=== PATIENT | female | born 1965 | race Two or more races ===

== ENCOUNTER 2019-10-06 14:53 | Emergency (ER) | payer OTHER ==
[2019-10-06 15:10] VITALS: BP 122/71; PULSE 70
[2019-10-06] MEDS ORDERED: Sodium Chloride 0.9% 10 ML Syringe FLUSH PRN (15:22)
[2019-10-06] MEDS ORDERED: Ketorolac 30 MG/ML SDV IVPUSH ONE (15:24)
--- NOTE | 2019-10-06 15:29 | EDM.PDOC ---
ED HPI GENERAL MEDICAL PROBLEM - General Chief Complaint: Chest Pain Stated Complaint: CHEST PAIN Time Seen by Provider: 10/06/19 14:57 Source of Information: Reports: Patient History Limitations: Reports: No Limitations - History of Present Illness INITIAL COMMENTS - FREE TEXT/NARRATIVE: Patient is a 53-year-old female who presents with complaints of chest pain and shortness of breath that started on Thursday. The symptoms began as chest "heaviness" and "pressure" with SOB on Thursday. She states that the symptoms have not been constant since Thursday. At times they will disappear and then returned with a sharp pain. She verbalizes the pain is throughout her thoracic region, anterior and posterior. It is more painful to take a deep breath and she is tender to palpation, especially to her upper back. She states that yesterday around 1700 she awoke from a nap with the pain present and was very diaphoretic and short of breath. She denies any associated cough and has not been doing any activities that are out of the normal for her, including no heavy lifting recently. She states that she does have a history of anxiety and she has been under increased stress as of recently. She is currently being treated for anxiety and depression with Prozac and Xanax. She denies any cardiac history or history of blood clots. Chest Pain Score (Numeric/FACES): 7 - Related Data Allergies Allergy/AdvReac Type Severity Reaction Status Date / Time No Known Allergies Allergy Verified 10/06/19 15:01 Home Meds: Home Meds ALPRAZolam [Alprazolam] 1 mg PO DAILY 02/27/14 [History] Lactobacillus Combo No.10 [Probiotic] 4 mg PO DAILY 02/27/14 [History] Omeprazole 20 mg PO BID 02/27/14 [History] estradioL [Vivelle-Dot] 1 patch TOP ASDIRECTED 02/27/14 [History] Fexofenadine/Pseudoephedrine [Pat-D 24 Hour Tablet] 180 - 240 mg PO ASDIRECTED PRN 03/15/14 [History] Bismuth Subsalicylate [Pepto Bismol] 2 tab PO QID 11/04/14 [History] Dicyclomine HCl [Bentyl] 20 mg PO Q6HR PRN #10 tablet 11/04/14 [Rx] Ondansetron [Zofran ODT] 4 mg PO Q6H PRN #10 tab.dis 11/04/14 [Rx] Naproxen [Naprosyn] 500 mg PO Q12HR PRN #10 tab 10/06/19 [Rx] ED ROS GENERAL - Review of Systems Review Of Systems: See Below Constitutional: Reports: Diaphoresis. Denies: Fever, Chills HEENT: Reports: No Symptoms Respiratory: Reports: Shortness of Breath. Denies: Cough Cardiovascular: Reports: Chest Pain. Denies: Edema, Palpitations Endocrine: Reports: No Symptoms GI/Abdominal: Reports: No Symptoms. Denies: Abdominal Pain, Diarrhea, Vomiting : Reports: No Symptoms Musculoskeletal: Reports: Back Pain, Other (generalized chest wall pain) Skin: Reports: No Symptoms Neurological: Reports: No Symptoms. Denies: Dizziness, Headache Psychiatric: Reports: Anxiety Hematologic/Lymphatic: Reports: No Symptoms Immunologic: Reports: No Symptoms ED EXAM, GENERAL - Physical Exam Exam: See Below Exam Limited By: No Limitations General Appearance: Alert, WD/WN, No Apparent Distress Head: Atraumatic, Normocephalic Respiratory/Chest: No Respiratory Distress, Lungs Clear, Normal Breath Sounds, No Accessory Muscle Use, Other (generalized chest wall tenderness throughout the thorax and upper back. States that the midline upper back is worse than the anterior chest.) Cardiovascular: Normal Peripheral Pulses, Regular Rate, Rhythm, No Edema, No Murmur GI/Abdominal: Normal Bowel Sounds, Soft, Non-Tender, No Distention Neurological: Alert, Oriented, Normal Cognition Psychiatric: Normal Affect, Normal Mood Skin Exam: Warm, Dry, Intact, Normal Color, No Rash EKG INTERPRETATION EKG Date: 10/06/19 Time: 15:05 Rhythm: NSR Rate (Beats/Min): 67 [place]: Normal P-Wave: Present QRS: Normal ST-T: Normal QT: Normal Comparison: NA - No Prior EKG Course - Vital Signs Last Recorded V/S: Last Vital Signs Temp 97.5 F 10/06/19 15:07 Pulse 70 10/06/19 15:07 Resp 16 10/06/19 15:07 BP 122/71 10/06/19 15:07 Pulse Ox 99 10/06/19 15:07 - Orders/Labs/Meds Orders: Active Orders 24 hr Category Date Time Status EKG Documentation Completion [RC] STAT Care 10/06/19 15:22 Active Peripheral IV Care [RC] . DIRECTED Care 10/06/19 15:23 Active Chest 2V [CR] Stat Exams 10/06/19 15:22 Taken CBC WITH AUTO DIFF [HEME] Stat Lab 10/06/19 15:09 Results Sodium Chloride 0.9% [Saline Flush] Med 10/06/19 15:22 Active 10 ml FLUSH ASDIRECTED PRN Peripheral IV Insertion Adult [OM.PC] Stat Oth 10/06/19 15:22 Ordered Medication Orders Sodium Chloride (Saline Flush) 10 ml FLUSH ASDIRECTED PRN PRN Reason: Keep Vein Open Last Admin: 10/06/19 15:34 Dose: 10 ml Labs: Laboratory Tests 10/06/19 10/06/19 10/06/19 Range/Units 15:09 15:09 15:09 WBC 8.27 (3.98-10.04) K/mm3 RBC 5.41 H (3.98-5.22) M/mm3 Hgb 12.9 (11.2-15.7) gm/dl Hct 39.6 (34.1-44.9) % MCV 73.2 L (79.4-94.8) fl MCH 23.8 L (25.6-32.2) pg MCHC 32.6 (32.2-35.5) g/dl RDW Std Deviation 45.4 (36.4-46.3) fL Plt Count 364 (182-369) K/mm3 MPV 10.3 (9.4-12.3) fl Neut % (Auto) 54.3 (34.0-71.1) % Lymph % (Auto) 38.5 (19.3-51.7) % [place] % (Auto) 5.1 (4.7-12.5) % Eos % (Auto) 1.7 (0.7-5.8) Baso % (Auto) 0.4 (0.1-1.2) % Neut # (Auto) 4.50 (1.56-6.13) K/mm3 Lymph # (Auto) 3.18 (1.18-3.74) K/mm3 [place] # (Auto) 0.42 H (0.24-0.36) K/mm3 Eos # (Auto) 0.14 (0.04-0.36) K/mm3 Baso # (Auto) 0.03 (0.01-0.08) K/mm3 D-Dimer, Quantitative < 0.19 L (0.19-0.50) mg/L Sodium 138 (136-145) mEq/L Potassium 4.0 (3.5-5.1) mEq/L Chloride 101 (98-107) mEq/L Carbon Dioxide 27 (21-32) mEq/L Anion Gap 14.0 (5-15) BUN 12 (7-18) mg/dL Creatinine 0.9 (0.55-1.02) mg/dL Est Cr Clr Drug Dosing 58.42 mL/min Estimated GFR (MDRD) > 60 (>60) mL/min BUN/Creatinine Ratio 13.3 L (14-18) Glucose 102 (74-106) mg/dL Calcium 9.2 (8.5-10.1) mg/dL Total Bilirubin 0.2 (0.2-1.0) mg/dL AST 25 (15-37) U/L ALT 41 (14-59) U/L Alkaline Phosphatase 77 (46-116) U/L Troponin I < 0.017 (0.00-0.056) ng/mL Total Protein 7.4 (6.4-8.2) g/dl Albumin 4.1 (3.4-5.0) g/dl Globulin 3.3 gm/dL Albumin/Globulin Ratio 1.2 (1-2) Meds: Medications Generic Name Dose Route Start Last Admin Trade Name Freq PRN Reason Stop Dose Admin Sodium Chloride 10 ml 10/06/19 15:22 10/06/19 15:34 Saline Flush FLUSH 10 ml ASDIRECTED PRN Administration Keep Vein Open Discontinued Medications Generic Name Dose Route Start Last Admin Trade Name Freq PRN Reason Stop Dose Admin Ketorolac Tromethamine 30 mg 10/06/19 15:24 10/06/19 15:33 Toradol IVPUSH 10/06/19 15:25 30 mg ONETIME ONE Administration - Re-Assessments/Exams Free Text/Narrative Re-Assessment/Exam: 10/06/19 16:16 Patient's chest x-ray was normal. Her labs are grossly unremarkable. D-dimer was negative, as was the troponin. Patient verbalized that she did have significant relief with the Toradol administration. I feel that her pain is likely muscular related. She does take 1 mg of Xanax at bedtime already, so I will not treat with Flexeril as this may be overly sedating for her. I will start her on naprosyn 500 mg twice daily as needed for pain. Departure - Departure Time of Disposition: 16:17 Disposition: Home, Self-Care 01 Condition: Good Clinical Impression: Chest wall pain Prescriptions: Naproxen [Naprosyn] 500 mg PO Q12HR PRN #10 tab PRN Reason: Pain Instructions: Chest Wall Pain, [id number], Nonspecific Chest Pain Referrals: PCP,Not In Area [Primary Care Provider] - Forms: ED Department Discharge Additional Instructions: You were seen in the emergency department today for chest wall and upper back pain that started on Thursday. Your workup included blood work, EKG, and chest x- ray. These tests were normal. Your heart examination was normal and there are no blood clots within your lungs. It is likely that your pain is muscular in nature. A prescription for Naprosyn 500mg every 12 hours as needed for pain has been sent to [facility]. I would recommend that you take this twice daily for the next few days and then as needed for discomfort. Do no take ibuprofen in addition to this medication. If you should experience any new or worsening symptoms, please do not hesitate to return to the emergency department. Sepsis Event Note - Evaluation Sepsis Screening Result: No Definite Risk - Focused Exam Vital Signs: Vital Signs Temp Pulse Resp BP Pulse Ox 10/06/19 15:07 97.5 F 70 16 122/71 99 10/06/19 15:01 97.5 F Date Exam was Performed: 10/06/19 Time Exam was Performed: 16:26 - My Orders Last 24 Hours: My Active Orders 10/06/19 15:09 CBC WITH AUTO DIFF [HEME] Stat 10/06/19 15:22 EKG Documentation Completion [RC] STAT Chest 2V [CR] Stat Sodium Chloride 0.9% [Saline Flush] 10 ml FLUSH ASDIRECTED PRN Peripheral IV Insertion Adult [OM.PC] Stat 10/06/19 15:23 Peripheral IV Care [RC] . DIRECTED - Assessment/Plan Last 24 Hours: My Active Orders 10/06/19 15:09 CBC WITH AUTO DIFF [HEME] Stat 10/06/19 15:22 EKG Documentation Completion [RC] STAT Chest 2V [CR] Stat Sodium Chloride 0.9% [Saline Flush] 10 ml FLUSH ASDIRECTED PRN Peripheral IV Insertion Adult [OM.PC] Stat 10/06/19 15:23 Peripheral IV Care [RC] . DIRECTED
--- NOTE | 2019-10-07 07:49 | CR ---
Chest: Two views of the chest were obtained. Comparison: No prior chest x-ray. Heart size and mediastinum are normal. Lungs are clear. Slight degenerative change is scattered within the spine. Surgical clips are noted from prior cholecystectomy. Impression: 1. Nothing acute is identified on two-view chest x-ray. Diagnostic code #2 This report was dictated in [place] Standard Time
== END 2019-10-06 16:38 | disposition home or self-care (01) ==
LOC: JD.ED 14:53
DX: R07.89 Other chest pain (principal); Z79.899 Other long term (current) drug therapy
CPT/HCPCS: 36415; 71046; 80053; 84484; 85025; 85379; 93005; 96374; 99285; J1885; 93010; 99284